=== PATIENT | female | born 1975 | race Caucasian/White ===

== ENCOUNTER 2021-10-24 14:32 | Emergency (ER) | payer OTHER ==
[~2021-10-24] VITALS: Ht 167.6 cm; Wt 65.8 kg
[2021-10-24 15:42] LABS: BILIRUBIN,URINE NEGATIVE (NEGATIVE); COLOR,URINE DARK YELLOW (YELLOW); LEUKOCYTE ESTERASE ,URINE NEGATIVE (NEGATIVE); NITRITE, URINE NEGATIVE (NEGATIVE); PH,URINE 6.5 (5.0-8.0); PROTEIN,URINE NEGATIVE (NEGATIVE); UGLUCOSE NEGATIVE (NEGATIVE); UROBILINOGEN,URINE 0.2 EU/dL (0.2)
[2021-10-24 15:54] LABS: RBC,URINE TOO NUMEROUS TO COUN /HPF (0-2)
[2021-10-24 15:55] LABS: BACTERIA,URINE Moderate /HPF (None Seen); SQUAMOUS EPITHELIAL CELL,UR 0-2 /HPF (None Seen)
[2021-10-24] MEDS ORDERED: NITR100C6 PO (16:21)
[2021-10-24 16:31] VITALS: BP 149/90
== END 2021-10-24 16:32 | disposition home or self-care (01) ==
LOC: ER 14:36
DX: N39.0 Urinary tract infection, site not specified (principal); R31.9 Hematuria, unspecified; Z87.442 Personal history of urinary calculi
CPT/HCPCS: 81001; 87086-TC; 87186-TC

== ENCOUNTER 2025-03-31 19:49 | Emergency (ER) | payer MEDICAID, OTHER ==
[~2025-03-31 19:49] MED LIST: NITR100C6 PO
== END 2025-03-31 21:11 | disposition left against medical advice (07) ==
LOC: ER 19:53
DX: N93.9 Abnormal uterine and vaginal bleeding, unspecified (principal); Z53.21 Procedure and treatment not carried out due to patient leaving prior to being seen by health care provider

== ENCOUNTER 2025-05-17 19:27 | Emergency (ER) | payer MEDICAID | END 2025-05-17 22:32 | disposition left against medical advice (07) | LOC: ER 19:31 | DX: H92.09 Otalgia, unspecified ear (principal); Z53.21 Procedure and treatment not carried out due to patient leaving prior to being seen by health care provider ==

== ENCOUNTER 2025-06-24 14:29 | Emergency (ER) | payer MEDICAID ==
[~2025-06-24] VITALS: Ht 170.2 cm; Wt 69.9 kg
[2025-06-24 14:35] VITALS: BP 146/98; TEMP 98; O2SAT 98
== END 2025-06-24 15:25 | disposition home or self-care (01) ==
LOC: ER 14:39
DX: H72.92 Unspecified perforation of tympanic membrane, left ear (principal)